=== PATIENT | male | born 1965 | race Caucasian/White ===

== ENCOUNTER 2018-04-05 21:57 | Emergency (ER) | payer OTHER ==
[2018-04-05] MEDS: ONDANSETRON 4 MG INJ IV (22:48)
[2018-04-05] MEDS: SOD CHLORIDE 0.9% 1,000 ML IV (22:48)
[2018-04-05] MEDS: morphine 4 MG/ML VIAL IV (22:48)
[2018-04-05] MEDS: DIPHTH/TET/ACEL PERTUSS (ADULT) 0.5 ML VIAL IM* (22:53)
[2018-04-05 22:56] LABS: ADD MAN DIFF? NO
[2018-04-05 22:57] LABS: WHITE BLOOD COUNT 13.1 10^3/ul (4.8-10.8)
[2018-04-05 22:57] LABS: BASOPHILS % 0.2 % (0.0-2.0); EOSINOPHILS % 0.1 % (0.0-7.0); HEMATOCRIT 40.1 % (42.0-52.0); HEMOGLOBIN 13.7 g/dl (14.0-18.0); LYMPHOCYTES # 0.7 10^3/ul (0.8-2.9); MEAN CORPUSCULAR HEMOGLOBIN 30.8 pg (29.0-33.0); MEAN CORPUSCULAR HGB CONC 34.2 g/dl (32.0-37.0); MEAN CORPUSCULAR VOLUME 90.1 fl (82.0-101.0); MEAN PLATELET VOLUME 10.1 fl (7.4-10.4); MONOCYTE # 0.9 10^3/ul (0.3-0.9); MONOCYTES % 7.1 % (0.0-11.0); NEUTROPHIL # 11.4 10^3/ul (1.6-7.5); NEUTROPHILS % 87.1 % (39.0-77.0); PLATELET COUNT 174 10^3/UL (140-415); RED BLOOD COUNT 4.45 10^6/ul (4.70-6.10); RED CELL DISTRIBUTION WIDTH 12.1 % (11.5-14.5)
[2018-04-05 23:16] LABS: ALANINE AMINOTRANSFERASE 20 IU/L (13-69); ALBUMIN 4.1 g/dl (3.3-4.9); ALBUMIN/GLOBULIN RATIO 1.46; ALKALINE PHOSPHATASE 51 IU/L (42-121); ANION GAP 16 (8-16); ASPARTATE AMINO TRANSFERASE 39 IU/L (15-46); BILIRUBIN,INDIRECT 0.8 mg/dl (0-1.1); BILIRUBIN,TOTAL 0.8 mg/dl (0.2-1.3); BLOOD UREA NITROGEN 28 mg/dl (7-20); CALCIUM 9.7 mg/dl (8.4-10.2); CARBON DIOXIDE 24 mmol/L (21-31); CHLORIDE 105 mmol/L (97-110); CREATININE 1.16 mg/dl (0.61-1.24); GLUCOSE 131 mg/dl (70-220); LIPASE 34 U/L (23-300); POTASSIUM 4.7 mmol/L (3.5-5.1); SODIUM 140 mmol/L (135-144); TOTAL PROTEIN 6.9 g/dl (6.1-8.1)
[2018-04-05] MEDS: IOHEXOL 300MG/ML 150 ML BTL (23:21)
[2018-04-05] MEDS: SOD CHLORIDE 0.9% 100 ML (23:21)
[2018-04-06] MEDS: HYDROCODONE/APAP (10/325) TAB PO (01:29)
[2018-04-06] MEDS: LIDOCAINE 1%/EPI (MDV) 50 ML INJ INJ (01:57)
== END 2018-04-06 03:47 | disposition home or self-care (01) ==
LOC: FTE 21:57
DX: S01.01XA Laceration without foreign body of scalp, initial encounter (principal); S06.0X0A Concussion without loss of consciousness, initial encounter; S63.296A Dislocation of distal interphalangeal joint of right little finger, initial encounter; S00.81XA Abrasion of other part of head, initial encounter; S80.211A Abrasion, right knee, initial encounter; S80.212A Abrasion, left knee, initial encounter; W01.118A Fall on same level from slipping, tripping and stumbling with subsequent striking against other sharp object, initial encounter; Y92.89 Other specified places as the place of occurrence of the external cause
CPT/HCPCS: 12001; 36415; 70450; 70486; 71046; 72125; 73130-RT; 74177; 76775; 80053; 83690; 85025; 90471; 90715; 96361; 96374; 96375; 99285-25

== ENCOUNTER 2018-06-15 08:45 | Day surgery (SDC) | payer OTHER ==
[2018-06-15] MEDS ORDERED: ALBUTEROL 0.083% (NEB) 2.5 MG/3 ML AMP HHN (12:00)
[2018-06-15] MEDS ORDERED: ONDANSETRON 4 MG INJ IV (12:00)
[2018-06-15] MEDS ORDERED: MEPERIDINE 25 MG INJ IV (12:00)
[2018-06-15] MEDS ORDERED: METOCLOPRAMIDE 10 MG INJ IV (12:00)
[2018-06-15] MEDS ORDERED: HYDROmorphONE 1 MG/5 ML IV SYRINGE IV ×3 (12:00)
[2018-06-15] MEDS ORDERED: FENTAnyl 50 MCG/ML VIAL IV ×2 (12:00)
[2018-06-15] MEDS ORDERED: DIPHENHYDRAMINE 50 MG INJ IV (12:00)
[2018-06-15] MEDS ORDERED: FENTAnyl 50 MCG/ML VIAL (12:16)
[2018-06-15] MEDS ORDERED: SUCCINYLCHOLINE CHLORIDE 100 MG/5 ML SYG IV (12:33)
[2018-06-15] MEDS ORDERED: CEFAZOLIN 1 GM INJ (12:33)
[2018-06-15] MEDS ORDERED: PROPOFOL 20 ML (12:33)
[2018-06-15] MEDS ORDERED: SUGAMMADEX SODIUM 200 MG/2 ML VIAL IV (12:33)
[2018-06-15] MEDS ORDERED: LIDOCAINE 100 MG SYRINGE (12:33)
[2018-06-15] MEDS ORDERED: ROCURONIUM 50 MG INJ (12:33)
[2018-06-15] MEDS: LIDOCAINE 1% (STERILE-PAK) 30 ML INJ (13:13)
== END 2018-06-15 14:13 | disposition home or self-care (01) ==
LOC: SDS 08:45
DX: M72.0 Palmar fascial fibromatosis [Dupuytren] (principal)
CPT/HCPCS: 26123; 88304

== ENCOUNTER 2019-01-14 11:40 | Day surgery (SDC) | payer OTHER ==
[2019-01-14] MEDS ORDERED: PROPOFOL 20 ML (14:02)
== END 2019-01-14 19:24 | disposition home or self-care (01) ==
LOC: GIL 11:40
DX: R19.5 Other fecal abnormalities (principal); K64.8 Other hemorrhoids
CPT/HCPCS: 45378